=== PATIENT | male | born 1930 | race Caucasian/White ===

== ENCOUNTER → 2017-03-15 | Outpatient (CLI) | payer MEDICARE, OTHER | END | disposition home or self-care (01) | LOC: PCVCCLINIC 11:14 | PROVIDERS: ATTEND Internal Medicine Cardiovascular Disease | DX: I25.10 Atherosclerotic heart disease of native coronary artery without angina pectoris (principal); I10 Essential (primary) hypertension; E11.9 Type 2 diabetes mellitus without complications; I71.4 Abdominal aortic aneurysm, without rupture; I65.23 Occlusion and stenosis of bilateral carotid arteries; I87.2 Venous insufficiency (chronic) (peripheral); I73.9 Peripheral vascular disease, unspecified; E78.00 Pure hypercholesterolemia, unspecified; G47.33 Obstructive sleep apnea (adult) (pediatric); Z79.82 Long term (current) use of aspirin; Z79.84 Long term (current) use of oral hypoglycemic drugs; Z87.891 Personal history of nicotine dependence | CPT/HCPCS: 80061; 93005; G0463 ==

== ENCOUNTER → 2017-12-05 | Outpatient (CLI) | payer MEDICARE, OTHER | END | disposition home or self-care (01) | LOC: PCVCIMAG 12:08 | DX: I25.10 Atherosclerotic heart disease of native coronary artery without angina pectoris (principal); I10 Essential (primary) hypertension; I87.2 Venous insufficiency (chronic) (peripheral); E78.00 Pure hypercholesterolemia, unspecified; I73.9 Peripheral vascular disease, unspecified; I71.4 Abdominal aortic aneurysm, without rupture; Z87.891 Personal history of nicotine dependence; Z79.82 Long term (current) use of aspirin; Z79.899 Other long term (current) drug therapy | CPT/HCPCS: 80061; 93005; 93978; G0463 ==

== ENCOUNTER → 2018-08-13 | Outpatient (CLI) | payer MEDICARE, OTHER | END | disposition home or self-care (01) | LOC: PCVCCLINIC 14:08 | PROVIDERS: ATTEND Internal Medicine Cardiovascular Disease | DX: I25.810 Atherosclerosis of coronary artery bypass graft(s) without angina pectoris (principal); E78.00 Pure hypercholesterolemia, unspecified; I10 Essential (primary) hypertension; I71.4 Abdominal aortic aneurysm, without rupture; J44.9 Chronic obstructive pulmonary disease, unspecified; E11.9 Type 2 diabetes mellitus without complications; I77.9 Disorder of arteries and arterioles, unspecified; Z87.891 Personal history of nicotine dependence; Z79.84 Long term (current) use of oral hypoglycemic drugs; Z79.82 Long term (current) use of aspirin | CPT/HCPCS: 80061; 93005; G0463 ==

== ENCOUNTER → 2019-02-22 | Outpatient (CLI) | payer MEDICARE, OTHER ==
--- NOTE | 2019-02-22 12:58 | PCVCIMAG ---
APPROVED REPORT Study performed: 02/22/2019 08:27:52 EXAM: Comprehensive 2D, Doppler, and color-flow Echocardiogram Patient Location: Echo lab Room #: 2Status: routine BSA: 2.04 HR: 64 bpmBP: 120/64 mmHg Rhythm: NSR Other Information Study Quality: Fair Risk Factors: Cardiac Risk Factors: HTN, Hyperlipidemia Indications COPD CAD Hypertension/HDD 2D Dimensions IVSd: 9.45 (7-11mm)LVOT Diam: 21.87 (18-24mm) LVDd: 52.81 mm PWd: 9.53 (7-11mm)Ascending Ao: 35.54 (22-36mm) LVDs: 36.45 (25-40mm) Left Atrium: 29.98 (27-40mm) Aortic Root: 25.32 mm LV Single Plane 4CH: 51.04 % LV Single Plane 2CH: 49.06 % Biplane EF: 50.0 % Volumes Left Atrial Volume (Systole) Single Plane 4CH: 38.13 mLSingle Plane 2CH: 47.48 mL Biplane LA Volume: 47.00 mLLA ESV Index: 23.00 mL/m2 Aortic Valve AoV Peak Trve.: 1.37 m/s AO Peak Gr.: 7.51 mmHgLVOT Max P.58 mmHg LVOT Max V: 0.63 m/s BAKARI Vmax: 1.73 cm2 Mitral Valve E/A Ratio: 0.6 MV Decel. Time: 155.46 ms MV E Max Trev.: 0.54 m/s MV A Trev.: 0.85 m/s Pulmonary Valve PV Peak Trev.: 0.90 m/sPV Peak Gr.: 3.27 mmHg Pulmonary Vein P Vein S: 0.46 m/sP Vein A: 0.34 m/s P Vein D: 0.44 m/sP Vein A Dur.: 107.3 msec P Vein S/D Ratio: 1.05 Tricuspid Valve TR Peak Trev.: 2.90 m/s TR Peak Gr.: 33.62 mmHg TV Vmax: 0.72 m/sPA Pressure: 41.00 mmHg Left Ventricle The left ventricle is normal size. There is normal LV segmental wall motion. There is normal left ventricular wall thickness. The left ventricular systolic function is normal. The left ventricular ejection fraction is within the normal range. LVEF is 50-55%. Mild diastolic dysfunction is present (impaired relaxation pattern). Right Ventricle The right ventricle is normal size. The right ventricular systolic function is normal. Atria The left atrium size is normal. The right atrium size is normal. Aortic Valve Aortic valve is trileaflet, mild sclerosis. No aortic regurgitation is present. There is no aortic valvular stenosis. Mitral Valve The mitral valve is normal in structure. There is no mitral valve regurgitation noted. No evidence of mitral valve stenosis. Tricuspid Valve The tricuspid valve is normal in structure. Trace to mild tricuspid regurgitation with a PA pressure of 40 mmHg. Pulmonic Valve The pulmonary valve is normal in structure. There is no pulmonic valvular regurgitation. Great Vessels The aortic root is normal in size. The ascending aorta is normal in size. IVC is normal in size and collapses >50% with inspiration. Pericardium There is no pericardial effusion. There is no pleural effusion. <Conclusion> The left ventricular systolic function is normal. There is normal LV segmental wall motion. LVEF is 50-55%. Mild diastolic dysfunction Aortic valve is trileaflet, mild sclerosis. No aortic regurgitation or stenosis The mitral valve is normal in structure. No mitral valve regurgitation Trace to mild tricuspid regurgitation with a pulmonary artery pressure of 40 mmHg. There is no pericardial effusion.
== END | disposition home or self-care (01) ==
LOC: PCVCIMAG 09:02
PROVIDERS: ATTEND Internal Medicine Cardiovascular Disease
DX: I07.1 Rheumatic tricuspid insufficiency (principal); I25.10 Atherosclerotic heart disease of native coronary artery without angina pectoris; J44.9 Chronic obstructive pulmonary disease, unspecified; E11.9 Type 2 diabetes mellitus without complications; I10 Essential (primary) hypertension; E78.5 Hyperlipidemia, unspecified; E78.00 Pure hypercholesterolemia, unspecified; I25.5 Ischemic cardiomyopathy; I73.9 Peripheral vascular disease, unspecified; I71.4 Abdominal aortic aneurysm, without rupture; I65.23 Occlusion and stenosis of bilateral carotid arteries; I87.2 Venous insufficiency (chronic) (peripheral); Z95.1 Presence of aortocoronary bypass graft; Z87.891 Personal history of nicotine dependence; Z79.82 Long term (current) use of aspirin; Z79.84 Long term (current) use of oral hypoglycemic drugs
CPT/HCPCS: 36415; 80061; 93005; 93306; G0463

== ENCOUNTER → 2019-04-19 | Outpatient (CLI) | payer MEDICARE, OTHER ==
[~2019-04-19] MED LIST: REGADENOSON 0.4 MG/5 ML DISP.SYRIN. IV ONE
--- NOTE | 2019-04-19 11:09 | PCVCIMAG ---
EXAM: AORTOILIAC DUPLEX INDICATION: Abdominal aortic aneurysm with prior stent graft repair. FINDINGS: AORTA: Suprarenal aorta measures maximum diameter of 3.0 cm. Prior stent graft repair of abdominal aortic aneurysm appears intact without obvious endoleak. Residual aneurysm sac measures maximum diameter of 2.6 x 3.7 cm compared to 3.7 cm on prior study November 2017. No significant aortic stenosis. RIGHT COMMON ILIAC ARTERY: Maximum diameter is 1.7 cm. No significant stenosis. RIGHT EXTERNAL ILIAC ARTERY: No significant stenosis. LEFT COMMON ILIAC ARTERY: Maximum diameter is 1.6 cm. No significant stenosis. LEFT EXTERNAL ILIAC ARTERY: No significant stenosis. IMPRESSION: Intact stent graft repair of abdominal aortic aneurysm by ultrasound criteria. Residual aneurysm sac has remained stable in size since prior study. LOC:[id number]
--- NOTE | 2019-04-19 17:19 | PCVCIMAG ---
APPROVED REPORT Imaging Protocol: Rest Tc-99m/Stress Tc-99m 1 day Study performed: 04/19/2019 09:06:11 Indication: CAD, Ishcemic Cardiomyopathy Patient Location: Out-Patient Stress Nurse: Nena Herrera RN CT Tech:Briana Nakia [facility] Ht: 5 ft 6 in Wt: 210 lbs BSA: 2.04 m2 HR: 48 bpm BP: 150/67 mmHg BMI: 33.8 Rhythm: Sinus Bradycardia, 1st degree AV block Medical History Medical History: Hyperlipidemia, HTN, CVD, Former Smoker, PVD, Diabetes Medications: Albuterol, ASA, Atorvastatin, Lasix, Gabapentin, Bystolic, Accupril Allergies: No known drug allergies Cardiac Risk Factors: Age Previous Cardiac Procedures: CABG Pretest Chest Pain Characteristics: No chest pain Exercise History: Sedentary Physical Disabilities: Hips, Back Meds Held (24 hrs): Bystolic Resting Data Rest SPECT myocardial perfusion imaging was performed in supine position 45 minutes following the intravenous injection of 10.6 mCi of Tc-99m Sestamibi. Time of rest injection: 0830 Date: 04/19/2019 Administration Route: IV Administration Site: Right Hand Pharmacologic Stress Pharmacologic stress test was performed by injecting Regadenoson 0.4 mg IV push over 10-15 seconds immediately followed by the intravenous injection of 31.5 mCi of Tc-99m Sestamibi. Time of stress injection: 1000 Date: 04/19/2019 Administration Route: IV Administration Site: Right Hand Gated Stress SPECT was performed 45 minutes after stress injection. The images were gated to evaluate regional wall motion and calculate left ventricular ejection fraction. Stress Test Details Stress Test: Pharmacologic stress testing performed using 0.4 mg of regadenoson per 5 mL given IV over 10 seconds. Reason for pharmacologic stress test: physical limitation. HRMax Heart Rate (APMHR): 134 bpm Resting HR: 48 bpmTarget HR (85% APMHR): 113 bpm Max HR Achieved: 68 bpm % of APMHR: 50 Recovery HR: 58 bpm BP Resting BP: 150/67 mmHg Max BP: 158/72 mmHg Recovery BP: 134/64 mmHg ECG Resting ECG: Sinus Bradycardia, 1st degree AV block Stress ECG: Sinus Rhythm, 1st degree AV block Arrhythmia: VPC's Recovery ECG: Sinus Bradycardia, 1st degree AV block Clinical Reason for Termination: Completed protocol Stress Symptoms: Dyspnea, Lightheaded Symptoms resolved with caffeine. Stress ECG Conclusion ECG: Non-ischemic Study Quality Study: Good Study Data Post stress, the left ventricular ejection was 75%.. SSS: 3 SRS: 3 SDS: 3 TID = 1.04. Perfusion No evidence of stress induced ischemia or prior myocardial infarction. Wall Motion Normal left ventricular size and function with no regional wall motion abnormalities. Nuclear Conclusion No evidence of stress induced ischemia or prior myocardial infarction. Normal left ventricular size and function with no regional wall motion abnormalities. Post stress, the left ventricular ejection was 75%. No change since prior study dated August 2016. Interpreted by: Jesus Manuel Cortes MD Electronically Approved: 04/19/2019 16:30:06 <Conclusion> ECG: Non-ischemic
== END | disposition home or self-care (01) ==
LOC: PCVCIMAG 07:49
PROVIDERS: ATTEND Internal Medicine Cardiovascular Disease
DX: I25.10 Atherosclerotic heart disease of native coronary artery without angina pectoris (principal); I25.5 Ischemic cardiomyopathy; I71.4 Abdominal aortic aneurysm, without rupture; I73.9 Peripheral vascular disease, unspecified; E78.00 Pure hypercholesterolemia, unspecified; I10 Essential (primary) hypertension; Z87.891 Personal history of nicotine dependence
CPT/HCPCS: 78452; 93017; 93978; A9500; J2785